=== PATIENT | male | born 1960 | race Native Hawaiian/Other Pacific Islander ===

== ENCOUNTER 2018-11-13 17:45 | Emergency (ER) | payer BC ==
--- NOTE | 2018-11-13 18:28 | RAD ---
CHEST TWO VIEWS: 11/13/18 HISTORY: Cough. Heart size and mediastinum are within normal limits. The lungs are clear of infiltrates. No significa nt bony findings. IMPRESSION: No active intrathoracic disease. POS: [facility]
== END 2018-11-13 18:35 | disposition home or self-care (01) ==
LOC: SCSER 17:45
DX: J20.9 Acute bronchitis, unspecified (principal); I10 Essential (primary) hypertension; R73.03 Prediabetes
CPT/HCPCS: 71046

== ENCOUNTER 2020-09-30 13:19 | Inpatient (IN) | payer BC, SELFPAY ==
[2020-09-30 14:06] LABS: #Basophils 0.1 thou/uL (0.0-0.2); #Lymphocytes 0.8 thou/uL (1.20-3.40); #Monocytes 0.2 thou/uL (0.11-0.59); #Neutrophils 4.3 thou/uL (1.40-6.50); %Basophils 1.9 % (0.0-1.0); %Lymphocytes 14.1 % (21.0-51.0); %Monocytes 4.3 % (0.0-10.0); %Neutrophils 79.7 % (42.0-75.0); Hemoglobin 14.2 g/dL (14.0-18.0); Mean Corpuscular HGB CONC 34.8 g/dL (32.0-36.0); Mean Corpuscular Volume 86.2 fL (78.0-98.0); Mean Platelet Volume 7.5 fL (7.4-10.4); Platelet Count 214 thou/uL (130-400); RBC Distribution Width 12.8 % (11.5-14.5); Red Blood Cell (RBC) Count 4.74 mill/uL (4.70-6.10); White Blood Cell (WBC) Count 5.4 thou/uL (4.8-10.8)
[2020-09-30] MEDS ORDERED: Dexamethasone 4 mg/ml Vial ONE (14:14)
[2020-09-30 14:21] LABS: ALT (SGPT) 41 U/L (8-55); AST (SGOT) 40 U/L (5-34); Albumin 4.3 g/dL (3.5-5.0); Alkaline Phosphatase 228 U/L (40-110); Anion Gap 15 mmol/L (10-20); BUN (Urea Nitrogen) 18 mg/dL (8.4-25.7); Bilirubin, Total 0.7 mg/dL (0.2-1.2); Calc. Creatinine Clearance 0 mL/min (70-130); Calcium 9.5 mg/dL (7.8-10.44); Carbon Dioxide 25 mmol/L (22-29); Chloride 97 mmol/L (98-107); Globulin 3.8 g/dL (2.4-3.5); Glucose 142 mg/dL (70-105); Potassium 3.3 mmol/L (3.5-5.1); Protein, Total 8.1 g/dL (6.0-8.3); Sodium 134 mmol/L (136-145)
[2020-09-30] MEDS ORDERED: Potassium Chloride 20 MEQ TAB ONE (14:50)
[2020-09-30 16:58] VITALS: BMI 28.8
[2020-09-30] MEDS ORDERED: Acetaminophen 325 MG TAB PO PRN (18:41)
[2020-09-30] MEDS ORDERED: Ondansetron PF 4 MG/2 ML Vial IVP PRN (18:42)
[2020-09-30] MEDS ORDERED: NS 0.9% w/ 20 MEQ KCL 1,000 ML IV SCH (18:45)
[2020-09-30] MEDS ORDERED: Dextrose 5% in Water 1,000 ML IV PRN (18:45)
[2020-09-30] MEDS ORDERED: Dextrose 50% Abboject 50 ML SYRINGE IVP PRN (18:45)
[2020-09-30] MEDS ORDERED: REMDESIVIR 200 MG in Sodium Chloride 0.9% 250 ML 210 ML IV SCH (21:00)
[2020-09-30] MEDS: Azithromycin 500 MG in Sodium Chloride 0.9% 250 ML 250 ML IVPB SCH (22:05)
[2020-09-30] MEDS: Benzonatate 100 MG CAP PO PRN (22:05)
[2020-10-01 06:04] LABS: #Monocytes 0.3 thou/uL (0.11-0.59); #Neutrophils 4.9 thou/uL (1.40-6.50); %Basophils 0.6 % (0.0-1.0); %Eosinophils 0.1 % (0.0-10.0); %Lymphocytes 15.8 % (21.0-51.0); %Monocytes 5.1 % (0.0-10.0); %Neutrophils 78.4 % (42.0-75.0); Hemoglobin 12.8 g/dL (14.0-18.0); Mean Corpuscular Volume 87.9 fL (78.0-98.0); Mean Platelet Volume 7.5 fL (7.4-10.4); Platelet Count 223 thou/uL (130-400); RBC Distribution Width 12.9 % (11.5-14.5); Red Blood Cell (RBC) Count 4.41 mill/uL (4.70-6.10); White Blood Cell (WBC) Count 6.3 thou/uL (4.8-10.8)
[2020-10-01 06:12] LABS: Hemoglobin A1c 6.7 % (4.0-6.0)
[2020-10-01 06:24] LABS: Anion Gap 14 mmol/L (10-20); BUN (Urea Nitrogen) 15 mg/dL (8.4-25.7); Calc. Creatinine Clearance 126 mL/min (70-130); Calcium 8.9 mg/dL (7.8-10.44); Carbon Dioxide 25 mmol/L (22-29); Cardiac Risk 2.9 (Less than 4.5); Chloride 103 mmol/L (98-107); Cholesterol 121 mg/dl (< 200 Desired); Glucose 131 mg/dL (70-105); HDL Cholesterol 42 mg/dL (>60 Neg Risk); LDL Cholesterol, Calculated 65 mg/dL; Potassium 3.9 mmol/L (3.5-5.1); Sodium 138 mmol/L (136-145); Triglycerides 69 mg/dL (Less than 150)
[2020-10-01] MEDS ORDERED: Losartan 25 MG TAB PO SCH (09:00)
[2020-10-01] MEDS ORDERED: BARICITINIB 1 MG TAB PO SCH (09:00)
[2020-10-01] MEDS: Hydrochlorothiazide 25 MG TAB PO SCH (09:54)
[2020-10-01] MEDS: Losartan 25 MG TAB PO SCH (09:54)
[2020-10-01] MEDS: Aspirin 325 MG TAB PO SCH (09:54)
[2020-10-01] MEDS: Colchicine 0.6 MG TAB PO SCH (09:54)
[2020-10-01] MEDS: Alogliptin 25 MG TAB PO SCH (09:54)
[2020-10-01] MEDS: Dexamethasone 4 mg/ml Vial SLOW IVP SCH (09:54)
[2020-10-01] MEDS: Enoxaparin Sodium 40 MG/0.4 ML SYRINGE SC SCH (09:55)
[2020-10-01] MEDS: Azithromycin 500 MG in Sodium Chloride 0.9% 250 ML 250 ML IVPB SCH (20:59)
[2020-10-01] MEDS: REMDESIVIR 100 MG in Sodium Chloride 0.9% 250 ML 230 ML IV SCH (21:00)
[2020-10-01] MEDS: Benzonatate 100 MG CAP PO PRN (21:00)
[2020-10-02 06:08] LABS: #Lymphocytes 1.1 thou/uL (1.20-3.40); #Monocytes 0.5 thou/uL (0.11-0.59); #Neutrophils 6.8 thou/uL (1.40-6.50); %Basophils 0.3 % (0.0-1.0); %Eosinophils 0.1 % (0.0-10.0); %Lymphocytes 12.8 % (21.0-51.0); %Monocytes 6.3 % (0.0-10.0); %Neutrophils 80.5 % (42.0-75.0); Hemoglobin 12.4 g/dL (14.0-18.0); Mean Corpuscular HGB CONC 32.6 g/dL (32.0-36.0); Mean Corpuscular Hemoglobin 28.5 pg (27.0-31.0); Mean Corpuscular Volume 87.2 fL (78.0-98.0); Mean Platelet Volume 7.7 fL (7.4-10.4); Platelet Count 272 thou/uL (130-400); RBC Distribution Width 12.9 % (11.5-14.5); Red Blood Cell (RBC) Count 4.35 mill/uL (4.70-6.10); White Blood Cell (WBC) Count 8.4 thou/uL (4.8-10.8)
[2020-10-02 06:34] LABS: ALT (SGPT) 45 U/L (8-55); AST (SGOT) 30 U/L (5-34); Albumin 3.7 g/dL (3.5-5.0); Alkaline Phosphatase 179 U/L (40-110); Anion Gap 12 mmol/L (10-20); BUN (Urea Nitrogen) 17 mg/dL (8.4-25.7); Bilirubin, Total 0.5 mg/dL (0.2-1.2); CRP (Inflammatory) 3.76 mg/dL (= or < 0.5); Calc. Creatinine Clearance 120 mL/min (70-130); Calcium 8.5 mg/dL (7.8-10.44); Carbon Dioxide 27 mmol/L (22-29); Chloride 102 mmol/L (98-107); Globulin 3.1 g/dL (2.4-3.5); Glucose 119 mg/dL (70-105); Potassium 3.7 mmol/L (3.5-5.1); Protein, Total 6.8 g/dL (6.0-8.3); Sodium 137 mmol/L (136-145)
[2020-10-02] MEDS: Losartan 25 MG TAB PO SCH (08:22)
[2020-10-02] MEDS: Aspirin 325 MG TAB PO SCH (08:23)
[2020-10-02] MEDS: Colchicine 0.6 MG TAB PO SCH (08:23)
[2020-10-02] MEDS: Dexamethasone 4 mg/ml Vial SLOW IVP SCH (08:23)
[2020-10-02] MEDS: Hydrochlorothiazide 25 MG TAB PO SCH (08:23)
[2020-10-02] MEDS: Enoxaparin Sodium 40 MG/0.4 ML SYRINGE SC SCH (08:24)
[2020-10-02] MEDS: Alogliptin 25 MG TAB PO SCH (09:36)
[2020-10-02] MEDS: Azithromycin 500 MG in Sodium Chloride 0.9% 250 ML 250 ML IVPB SCH (20:41)
[2020-10-02] MEDS: REMDESIVIR 100 MG in Sodium Chloride 0.9% 250 ML 230 ML IV SCH (22:34)
[2020-10-03] MEDS: Dexamethasone 4 mg/ml Vial SLOW IVP SCH (07:51)
[2020-10-03] MEDS: Hydrochlorothiazide 25 MG TAB PO SCH (07:51)
[2020-10-03] MEDS: Losartan 25 MG TAB PO SCH (07:51)
[2020-10-03] MEDS: Aspirin 325 MG TAB PO SCH (07:51)
[2020-10-03] MEDS: Colchicine 0.6 MG TAB PO SCH (07:52)
[2020-10-03] MEDS: Enoxaparin Sodium 40 MG/0.4 ML SYRINGE SC SCH (07:54)
[2020-10-03] MEDS: Alogliptin 25 MG TAB PO SCH (07:54)
[2020-10-03] MEDS: Insulin Regular 300 UNITS/3 ML VIAL SC PRN (16:53)
[2020-10-03] MEDS: Azithromycin 500 MG in Sodium Chloride 0.9% 250 ML 250 ML IVPB SCH (20:13)
[2020-10-03] MEDS: REMDESIVIR 100 MG in Sodium Chloride 0.9% 250 ML 230 ML IV SCH (22:11)
[2020-10-03] MEDS: Benzonatate 100 MG CAP PO PRN (22:25)
[2020-10-04] MEDS: Benzonatate 100 MG CAP PO PRN (04:15)
[2020-10-04 06:06] LABS: #Lymphocytes 0.9 thou/uL (1.20-3.40); #Monocytes 0.3 thou/uL (0.11-0.59); #Neutrophils 8.3 thou/uL (1.40-6.50); %Eosinophils 0.1 % (0.0-10.0); %Lymphocytes 9.3 % (21.0-51.0); %Monocytes 3.4 % (0.0-10.0); %Neutrophils 87.3 % (42.0-75.0); Hemoglobin 12.7 g/dL (14.0-18.0); Mean Corpuscular Hemoglobin 29.4 pg (27.0-31.0); Mean Corpuscular Volume 86.3 fL (78.0-98.0); Mean Platelet Volume 7.5 fL (7.4-10.4); Platelet Count 365 thou/uL (130-400); RBC Distribution Width 12.6 % (11.5-14.5); Red Blood Cell (RBC) Count 4.31 mill/uL (4.70-6.10); White Blood Cell (WBC) Count 9.5 thou/uL (4.8-10.8)
[2020-10-04 06:33] LABS: ALT (SGPT) 39 U/L (8-55); AST (SGOT) 22 U/L (5-34); Albumin 3.5 g/dL (3.5-5.0); Alkaline Phosphatase 151 U/L (40-110); Anion Gap 11 mmol/L (10-20); BUN (Urea Nitrogen) 17 mg/dL (8.4-25.7); Bilirubin, Total 0.8 mg/dL (0.2-1.2); CRP (Inflammatory) 2.06 mg/dL (= or < 0.5); Calc. Creatinine Clearance 123 mL/min (70-130); Calcium 8.6 mg/dL (7.8-10.44); Carbon Dioxide 29 mmol/L (22-29); Chloride 99 mmol/L (98-107); Globulin 3.1 g/dL (2.4-3.5); Glucose 100 mg/dL (70-105); Potassium 3.5 mmol/L (3.5-5.1); Protein, Total 6.6 g/dL (6.0-8.3); Sodium 135 mmol/L (136-145)
[2020-10-04] MEDS: Dexamethasone 4 mg/ml Vial SLOW IVP SCH (08:07)
[2020-10-04] MEDS: Hydrochlorothiazide 25 MG TAB PO SCH (08:07)
[2020-10-04] MEDS: Losartan 25 MG TAB PO SCH (08:07)
[2020-10-04] MEDS: Aspirin 325 MG TAB PO SCH (08:07)
[2020-10-04] MEDS: Colchicine 0.6 MG TAB PO SCH (08:07)
[2020-10-04] MEDS: Enoxaparin Sodium 40 MG/0.4 ML SYRINGE SC SCH (08:08)
[2020-10-04] MEDS: Alogliptin 25 MG TAB PO SCH (10:34)
[2020-10-04] MEDS: methylPREDNISolone Sod Succ 40 MG VIAL IVP SCH ×3 (10:39→20:34)
[2020-10-04] MEDS: Insulin Regular 300 UNITS/3 ML VIAL SC PRN ×2 (17:00→20:35)
[2020-10-04] MEDS: Azithromycin 500 MG in Sodium Chloride 0.9% 250 ML 250 ML IVPB SCH (20:32)
[2020-10-04] MEDS: REMDESIVIR 100 MG in Sodium Chloride 0.9% 250 ML 230 ML IV SCH (20:33)
[2020-10-04] MEDS: Enoxaparin Sodium 60 MG/0.6 ML SYRINGE SC SCH (20:33)
[2020-10-05] MEDS: methylPREDNISolone Sod Succ 40 MG VIAL IVP SCH ×4 (05:27→20:41)
[2020-10-05 06:10] LABS: #Lymphocytes 0.8 thou/uL (1.20-3.40); #Monocytes 0.3 thou/uL (0.11-0.59); #Neutrophils 7.3 thou/uL (1.40-6.50); %Basophils 0.1 % (0.0-1.0); %Eosinophils 0.1 % (0.0-10.0); %Lymphocytes 9.8 % (21.0-51.0); %Monocytes 3.9 % (0.0-10.0); %Neutrophils 86.1 % (42.0-75.0); Hemoglobin 12.8 g/dL (14.0-18.0); Mean Corpuscular HGB CONC 35.2 g/dL (32.0-36.0); Mean Corpuscular Hemoglobin 30.5 pg (27.0-31.0); Mean Corpuscular Volume 86.8 fL (78.0-98.0); Mean Platelet Volume 7.4 fL (7.4-10.4); Platelet Count 410 thou/uL (130-400); RBC Distribution Width 12.7 % (11.5-14.5); Red Blood Cell (RBC) Count 4.19 mill/uL (4.70-6.10); White Blood Cell (WBC) Count 8.5 thou/uL (4.8-10.8)
[2020-10-05 06:34] LABS: Anion Gap 12 mmol/L (10-20); BUN (Urea Nitrogen) 22 mg/dL (8.4-25.7); CRP (Inflammatory) 4.67 mg/dL (= or < 0.5); Calc. Creatinine Clearance 126 mL/min (70-130); Calcium 8.8 mg/dL (7.8-10.44); Carbon Dioxide 27 mmol/L (22-29); Chloride 101 mmol/L (98-107); Glucose 147 mg/dL (70-105); Sodium 136 mmol/L (136-145)
[2020-10-05] MEDS: Colchicine 0.6 MG TAB PO SCH (07:36)
[2020-10-05] MEDS: Enoxaparin Sodium 60 MG/0.6 ML SYRINGE SC SCH ×2 (07:36→20:41)
[2020-10-05] MEDS: Aspirin 325 MG TAB PO SCH (07:36)
[2020-10-05] MEDS: Hydrochlorothiazide 25 MG TAB PO SCH (07:36)
[2020-10-05] MEDS: Losartan 25 MG TAB PO SCH (07:37)
[2020-10-05] MEDS ORDERED: BARICITINIB 2 MG TAB PO SCH ×2 (09:00→21:00)
[2020-10-05] MEDS: Alogliptin 25 MG TAB PO SCH (10:02)
[2020-10-05] MEDS: BARICITINIB 2 MG TAB PO SCH (10:02)
[2020-10-05] MEDS: Azithromycin 500 MG in Sodium Chloride 0.9% 250 ML 250 ML IVPB SCH (20:41)
[2020-10-05] MEDS: Insulin Regular 300 UNITS/3 ML VIAL SC PRN (20:43)
[2020-10-06] MEDS: methylPREDNISolone Sod Succ 40 MG VIAL IVP SCH ×4 (04:07→20:58)
[2020-10-06 05:51] LABS: #Lymphocytes 1.1 thou/uL (1.20-3.40); #Monocytes 0.4 thou/uL (0.11-0.59); #Neutrophils 8.8 thou/uL (1.40-6.50); %Basophils 0.2 % (0.0-1.0); %Lymphocytes 10.5 % (21.0-51.0); %Monocytes 4.2 % (0.0-10.0); Mean Corpuscular HGB CONC 33.6 g/dL (32.0-36.0); Mean Corpuscular Hemoglobin 29.1 pg (27.0-31.0); Mean Corpuscular Volume 86.6 fL (78.0-98.0); Mean Platelet Volume 7.3 fL (7.4-10.4); Platelet Count 519 thou/uL (130-400); RBC Distribution Width 12.7 % (11.5-14.5); Red Blood Cell (RBC) Count 4.46 mill/uL (4.70-6.10); White Blood Cell (WBC) Count 10.3 thou/uL (4.8-10.8)
[2020-10-06 06:05] LABS: Anion Gap 10 mmol/L (10-20); BUN (Urea Nitrogen) 23 mg/dL (8.4-25.7); CRP (Inflammatory) 2.07 mg/dL (= or < 0.5); Calc. Creatinine Clearance 120 mL/min (70-130); Carbon Dioxide 29 mmol/L (22-29); Chloride 99 mmol/L (98-107); Glucose 149 mg/dL (70-105); Potassium 4.1 mmol/L (3.5-5.1); Sodium 134 mmol/L (136-145)
[2020-10-06] MEDS: BARICITINIB 2 MG TAB PO SCH (10:00)
[2020-10-06] MEDS: Losartan 25 MG TAB PO SCH (10:00)
[2020-10-06] MEDS: Hydrochlorothiazide 25 MG TAB PO SCH (10:00)
[2020-10-06] MEDS: Aspirin 325 MG TAB PO SCH (10:00)
[2020-10-06] MEDS: Colchicine 0.6 MG TAB PO SCH (10:00)
[2020-10-06] MEDS: Enoxaparin Sodium 60 MG/0.6 ML SYRINGE SC SCH ×2 (10:00→20:58)
[2020-10-06] MEDS: Alogliptin 25 MG TAB PO SCH (10:19)
[2020-10-06] MEDS: Insulin Regular 300 UNITS/3 ML VIAL SC PRN ×3 (12:07→21:09)
[2020-10-06] MEDS: Azithromycin 500 MG in Sodium Chloride 0.9% 250 ML 250 ML IVPB SCH (20:59)
[2020-10-07] MEDS: methylPREDNISolone Sod Succ 40 MG VIAL IVP SCH ×4 (04:58→22:31)
[2020-10-07 06:33] LABS: Band 2 % (5-11); Hemoglobin 14.1 g/dL (14.0-18.0); Lymphocytes 11 % (21-51); MDiff Complete? YES; Mean Corpuscular HGB CONC 33.7 g/dL (32.0-36.0); Mean Corpuscular Hemoglobin 29.2 pg (27.0-31.0); Mean Corpuscular Volume 86.6 fL (78.0-98.0); Mean Platelet Volume 7.3 fL (7.4-10.4); Monocytes 2 % (0-10); Neutrophil 83 % (42-75); Platelet Count 550 thou/uL (130-400); Platelet Morphology Comment Appears Increased; RBC Distribution Width 12.9 % (11.5-14.5); RBC Morphology Normal; Reactive Lymphocytes 2 % (0-10); Red Blood Cell (RBC) Count 4.83 mill/uL (4.70-6.10); White Blood Cell (WBC) Count 10.3 thou/uL (4.8-10.8)
[2020-10-07 06:34] LABS: Anion Gap 13 mmol/L (10-20); BUN (Urea Nitrogen) 21 mg/dL (8.4-25.7); CRP (Inflammatory) 0.91 mg/dL (= or < 0.5); Calc. Creatinine Clearance 129 mL/min (70-130); Carbon Dioxide 25 mmol/L (22-29); Chloride 100 mmol/L (98-107); Glucose 112 mg/dL (70-105); Potassium 4.3 mmol/L (3.5-5.1); Sodium 134 mmol/L (136-145)
[2020-10-07] MEDS: Enoxaparin Sodium 60 MG/0.6 ML SYRINGE SC SCH (08:47)
[2020-10-07] MEDS: Alogliptin 25 MG TAB PO SCH (08:48)
[2020-10-07] MEDS: Colchicine 0.6 MG TAB PO SCH (08:48)
[2020-10-07] MEDS: Hydrochlorothiazide 25 MG TAB PO SCH (08:48)
[2020-10-07] MEDS: Aspirin 325 MG TAB PO SCH (08:48)
[2020-10-07] MEDS: Losartan 25 MG TAB PO SCH (08:48)
[2020-10-07] MEDS: BARICITINIB 2 MG TAB PO SCH (08:49)
[2020-10-07] MEDS: Insulin Regular 300 UNITS/3 ML VIAL SC PRN (11:28)
[2020-10-07] MEDS: Apixaban 5 MG TAB PO SCH (22:27)
[2020-10-08] MEDS: methylPREDNISolone Sod Succ 40 MG VIAL IVP SCH ×2 (05:34→08:56)
[2020-10-08] MEDS: Insulin Regular 300 UNITS/3 ML VIAL SC PRN ×3 (05:34→16:20)
[2020-10-08 06:36] LABS: #Lymphocytes 0.7 thou/uL (1.20-3.40); #Monocytes 0.3 thou/uL (0.11-0.59); %Basophils 0.4 % (0.0-1.0); %Eosinophils 0.1 % (0.0-10.0); %Lymphocytes 10.4 % (21.0-51.0); %Monocytes 4.1 % (0.0-10.0); Hemoglobin 14.1 g/dL (14.0-18.0); Mean Corpuscular HGB CONC 33.3 g/dL (32.0-36.0); Platelet Count 593 thou/uL (130-400); RBC Distribution Width 12.9 % (11.5-14.5); Red Blood Cell (RBC) Count 4.85 mill/uL (4.70-6.10); White Blood Cell (WBC) Count 7.1 thou/uL (4.8-10.8)
[2020-10-08 06:51] LABS: Anion Gap 12 mmol/L (10-20); BUN (Urea Nitrogen) 18 mg/dL (8.4-25.7); CRP (Inflammatory) 0.88 mg/dL (= or < 0.5); Calc. Creatinine Clearance 133 mL/min (70-130); Calcium 9.1 mg/dL (7.8-10.44); Carbon Dioxide 26 mmol/L (22-29); Chloride 98 mmol/L (98-107); Glucose 164 mg/dL (70-105); Potassium 4.3 mmol/L (3.5-5.1); Sodium 132 mmol/L (136-145)
[2020-10-08] MEDS ORDERED: Sodium Chloride 0.9% 1,000 ML IV SCH (08:30)
[2020-10-08] MEDS: BARICITINIB 2 MG TAB PO SCH (08:53)
[2020-10-08] MEDS: Alogliptin 25 MG TAB PO SCH (08:54)
[2020-10-08] MEDS: Losartan 25 MG TAB PO SCH (08:54)
[2020-10-08] MEDS: Aspirin 325 MG TAB PO SCH (08:54)
[2020-10-08] MEDS: Hydrochlorothiazide 25 MG TAB PO SCH (08:55)
[2020-10-08] MEDS: Apixaban 5 MG TAB PO SCH ×2 (08:55→21:02)
[2020-10-08] MEDS: Colchicine 0.6 MG TAB PO SCH (08:55)
[2020-10-09 06:55] LABS: Anion Gap 9 mmol/L (10-20); BUN (Urea Nitrogen) 22 mg/dL (8.4-25.7); CRP (Inflammatory) Less than 0.50 mg/dL (= or < 0.5); Calc. Creatinine Clearance 116 mL/min (70-130); Carbon Dioxide 29 mmol/L (22-29); Chloride 99 mmol/L (98-107); Glucose 101 mg/dL (70-105); Potassium 4.2 mmol/L (3.5-5.1); Sodium 133 mmol/L (136-145)
[2020-10-09] MEDS ORDERED: predniSONE 20 MG TAB PO SCH (08:00)
[2020-10-09 08:15] VITALS: BP 121/78; TEMP 97.6
[2020-10-09] MEDS: Hydrochlorothiazide 25 MG TAB PO SCH (09:02)
[2020-10-09] MEDS: Colchicine 0.6 MG TAB PO SCH (09:02)
[2020-10-09] MEDS: BARICITINIB 2 MG TAB PO SCH (09:02)
[2020-10-09] MEDS: Losartan 25 MG TAB PO SCH (09:03)
[2020-10-09] MEDS: Alogliptin 25 MG TAB PO SCH (09:03)
[2020-10-09] MEDS: Aspirin 325 MG TAB PO SCH (09:03)
[2020-10-09] MEDS: Apixaban 5 MG TAB PO SCH (09:03)
[2020-10-09 09:06] LABS: ALT (SGPT) 33 U/L (8-55); AST (SGOT) 15 U/L (5-34); Albumin 3.3 g/dL (3.5-5.0); Alkaline Phosphatase 107 U/L (40-110); Bilirubin, Direct 0.3 mg/dL (0.1-0.3); Bilirubin, Total 0.6 mg/dL (0.2-1.2); Protein, Total 6.1 g/dL (6.0-8.3)
== END 2020-10-09 18:44 | disposition home or self-care (01) | DRG 177 ==
LOC: ERS 13:19 → T4-B 15:05 → T4-A 16:44
PROVIDERS: ADMIT Specialist; ATTEND Specialist
PROC: XW033E5 Introduction of Remdesivir Anti-infective into Peripheral Vein, Percutaneous Approach, New Technology Group 5 (ICD-10-PCS; principal; 2020-09-30)
PROC: 8E0ZXY6 Isolation (ICD-10-PCS; 2020-09-30)
DX: U07.1 COVID-19 (principal); J80 Acute respiratory distress syndrome; J12.82 Pneumonia due to coronavirus disease 2019; I10 Essential (primary) hypertension; E78.5 Hyperlipidemia, unspecified; E78.00 Pure hypercholesterolemia, unspecified; E87.6 Hypokalemia; Z91.14 Patient's other noncompliance with medication regimen; Z79.899 Other long term (current) drug therapy
CPT/HCPCS: 36415; 36416; 71045; 80048; 80053; 80061; 80076; 83036; 83605; 85025; 85379; 85652; 86140; J0456; J1100; J1650; J1815; J2920; J3480; J7050; J7512

== ENCOUNTER 2021-02-13 13:48 | Outpatient (CLI) | payer BC | END 2021-02-13 13:49 | disposition home or self-care (01) | LOC: BICRAD 13:48 | PROVIDERS: ATTEND Specialist | DX: M25.561 Pain in right knee (principal) ==

== ENCOUNTER 2023-03-13 07:21 | Outpatient (CLI) | payer BC | END 2023-03-13 07:22 | disposition home or self-care (01) | LOC: ULT 07:21 | PROVIDERS: ATTEND Plastic Surgery Surgery of the Hand | DX: R74.01 Elevation of levels of liver transaminase levels (principal) | CPT/HCPCS: 76705 ==

== ENCOUNTER 2023-04-01 14:40 | Outpatient (CLI) | payer OTHER | END 2023-04-01 14:41 | disposition home or self-care (01) | LOC: SCSRAD 14:40 | PROVIDERS: ATTEND Nurse Practitioner Family | DX: M54.50 Low back pain, unspecified (principal); M47.816 Spondylosis without myelopathy or radiculopathy, lumbar region | CPT/HCPCS: 72100 ==